=== PATIENT | female | born 1955 | race Caucasian/White ===

== ENCOUNTER 2022-12-29 14:24 | Outpatient (CLI) | payer MEDICARE | END 2022-12-29 14:25 | disposition home or self-care (01) | LOC: CSHULT 14:24 | PROVIDERS: ATTEND Obstetrics & Gynecology | DX: N63.10 Unspecified lump in the right breast, unspecified quadrant (principal) | CPT/HCPCS: 76642; 77066; G0279 ==

== ENCOUNTER 2024-04-06 12:20 | Inpatient (IN) | payer MEDICARE ==
[2024-04-06] MEDS ORDERED: cefTRIAXone (ROCEPHIN) 1 GM VIAL ONE (12:57)
[2024-04-06] MEDS ORDERED: Acetaminophen 500 MG TAB ONE (12:57)
[2024-04-06 13:15] LABS: Bilirubin Neg (Negative); Blood, Urine 10 (Negative); Clarity Slightly Cloudy (Clear); Glucose, Urine (Dipstick) Normal (Negative); Ketone, Urine 15 mg/dL (Negative); Leukocyte 25 (Negative); Nitrite Negative (Negative); Protein, Urine (Dipstick) 30 mg/dl (Neg-Trace); Specific Gravity, Urine 1.015 (1.005-1.030); Urobilinogen Normal mg/dL (Less than 2)
[2024-04-06 13:18] LABS: #Basophils 0.04 10x3/uL (0.0-0.2); #Eosinphils 0.01 10x3/uL (0.0-0.5); #Monocytes 1.16 10x3/uL (0.0-1.1); %Basophils 0.6 % (0.0-2.0); %Eosinophils 0.2 % (0.0-6.0); %Lymphocytes 7.6 % (18.0-47.0); %Monocytes 18.1 % (0.0-10.0); %Neutrophils 71.8 % (40.0-75.0); Hematocrit 32.9 % (34.9-44.5); Hemoglobin 11.1 g/dL (12.0-15.5); Mean Corpuscular HGB CONC 33.7 g/dL (32.0-36.0); Mean Corpuscular Hemoglobin 27.9 pg (27.0-33.0); Mean Corpuscular Volume 82.7 fL (81.6-98.3); Mean Platelet Volume 13.1 fL (7.4-10.4); Platelet Count 97 10x3/uL (150-450); RBC Distribution Width 14.6 % (11.5-14.5); Red Blood Cell (RBC) Count 3.98 10x6/uL (3.90-5.03); White Blood Cell (WBC) Count 6.4 10x3/uL (3.5-10.5)
[2024-04-06 13:22] LABS: ALT (SGPT) 11 U/L (8-55); AST (SGOT) 14 U/L (5-34); Albumin 3.5 g/dL (3.4-4.8); Alkaline Phosphatase 78 U/L (40-110); Anion Gap 15 mmol/L (10-20); BUN (Urea Nitrogen) 8 mg/dL (9.8-20.1); Bilirubin, Total 0.4 mg/dL (0.2-1.2); Calc. Creatinine Clearance 0 mL/min (70-130); Calcium 8.6 mg/dL (7.8-10.44); Carbon Dioxide 21 mmol/L (23-31); Chloride 98 mmol/L (98-107); Estimated GFR 65; Globulin 2.7 g/dL (2.4-3.5); Glucose 188 mg/dL (80-115); Lipase 7 U/L (8-78); Potassium 3.4 mmol/L (3.5-5.1); Protein, Total 6.2 g/dL (5.8-8.1); Sodium 131 mmol/L (136-145)
[2024-04-06] MEDS ORDERED: Ondansetron PF 4 MG/2 ML Vial ONE ×2 (13:24→15:35)
[2024-04-06 13:26] LABS: Troponin I Less than 0.010 ng/mL (< 0.028)
[2024-04-06 13:34] LABS: RBC/HPF 0-3 HPF (0-3)
[2024-04-06 13:35] LABS: Bacteria/HPF 1+ HPF (None Seen); CAUTI Indications for Culture Fever or rigors; WBC/HPF 0-3 HPF (0-3)
[2024-04-06 13:36] LABS: Urine Culture Reflex No No
[2024-04-06] MEDS ORDERED: Morphine 4 MG/ML VIAL ONE (13:51)
[2024-04-06 15:17] LABS: Platelet Adequacy Comment Appears Decreased
[2024-04-06 15:28] LABS: Influenza A by NAA Not Detected (NotDetected); Influenza B by NAA Not Detected (NotDetected); SARS-CoV-2 NAA Rapid Test Not Detected (NotDetected)
[2024-04-06] MEDS ORDERED: Acetaminophen 325 MG TAB PO PRN (16:13)
[2024-04-06] MEDS ORDERED: Electrolyte Replacement Protocol FS PRN (16:30)
[2024-04-06 18:13] VITALS: BMI 24.7
[2024-04-06] MEDS: Promethazine HCl 25 MG in Sodium Chloride 0.9% 50 ML IVPB SCH (18:32)
[2024-04-06] MEDS: Fioricet 325/50/40 mg Tablet PO SCH (18:38)
[2024-04-06] MEDS ORDERED: HumaLOG 300 UNITS/3 ML VIAL SC PRN (18:42)
[2024-04-06] MEDS ORDERED: Glucagon 1 MG/ML KIT IM PRN (18:42)
[2024-04-06] MEDS ORDERED: Dextrose 50% Abboject 50 ML SYRINGE SLOW IVP PRN (18:42)
[2024-04-06] MEDS ORDERED: Dextrose 5% in Water 1,000 ML IV PRN (18:42)
[2024-04-06] MEDS ORDERED: hydrALAZINE 20 MG/ML VIAL SLOW IVP PRN (18:48)
[2024-04-06] MEDS: Sodium Chloride 0.9% 1,000 ML IV SCH (19:29)
[2024-04-06] MEDS: Potassium Chloride 20 MEQ in Premix 1 BAG IVPB SCH (19:34)
[2024-04-06] MEDS: Electrolyte Replacement Protocol 1 EACH FS ONE (19:47)
[2024-04-06] MEDS: HYDROcodone/Acetaminophen 5/325 mg Tablet PO PRN (19:47)
[2024-04-06] MEDS: Ondansetron ODT 4 MG TAB PO PRN (19:47)
[2024-04-06] MEDS: metroNIDAZOLE 500 MG in Premix 1 BAG IVPB SCH (21:27)
[2024-04-06] MEDS: Ciprofloxacin Lactate/D5W 400 MG in Premix 1 BAG IVPB SCH (21:27)
[2024-04-06] MEDS: Metoclopramide HCl 10 MG (2 mL) VIAL IVP SCH (22:09)
[2024-04-06] MEDS: Ketorolac Tromethamine 30 MG (1 mL) VIAL IVP SCH (22:09)
[2024-04-06] MEDS: diphenhydrAMINE 50 MG/ML VIAL IVP SCH (22:09)
[2024-04-07 03:45] LABS: MDiff Complete? YES
[2024-04-07 03:49] LABS: Anion Gap 13 mmol/L (10-20); BUN (Urea Nitrogen) 5 mg/dL (9.8-20.1); Calc. Creatinine Clearance 79 mL/min (70-130); Carbon Dioxide 19 mmol/L (23-31); Chloride 106 mmol/L (98-107); Estimated GFR 85; Glucose 97 mg/dL (80-115); Magnesium 1.2 mg/dL (1.6-2.6); Potassium 3.5 mmol/L (3.5-5.1); Sodium 134 mmol/L (136-145)
[2024-04-07 03:53] LABS: Hematocrit 27.3 % (34.9-44.5); Hemoglobin 9.2 g/dL (12.0-15.5); Mean Corpuscular HGB CONC 33.7 g/dL (32.0-36.0); Mean Corpuscular Hemoglobin 28.1 pg (27.0-33.0); Mean Corpuscular Volume 83.5 fL (81.6-98.3); Mean Platelet Volume 13.2 fL (7.4-10.4); Platelet Count 66 10x3/uL (150-450); RBC Distribution Width 14.8 % (11.5-14.5); Red Blood Cell (RBC) Count 3.27 10x6/uL (3.90-5.03)
[2024-04-07 04:47] LABS: Band 8 % (5-11); Eosinophils 1 % (0-10); Lymphocytes 25 % (21-51); Monocytes 16 % (0-10); Neutrophil 50 % (42-75)
[2024-04-07 04:49] LABS: Anisocytosis SLIGHT = 6-15 cells (100X) (0-5/hpf); Hypochromia SLIGHT = 6-15 cells (100X) (0-5/hpf); Macrocytosis SLIGHT = 6-15 cells (100X) (0-5/hpf); Microcytosis SLIGHT = 6-15 cells (100X) (0-5/hpf)
[2024-04-07 04:50] LABS: Platelet Adequacy Comment Appears Decreased
[2024-04-07] MEDS ORDERED: Promethazine 25 MG TAB PO PRN (07:46)
[2024-04-07] MEDS: Potassium Chloride 20 MEQ TAB PO SCH (08:21)
[2024-04-07] MEDS: Aspirin 81 mg Enteric Coated Tablet PO SCH (08:22)
[2024-04-07] MEDS: Amlodipine 5 MG TAB PO SCH (08:22)
[2024-04-07] MEDS: Pantoprazole DR 40 MG TAB PO SCH (08:22)
[2024-04-07] MEDS: Enoxaparin 30 MG (0.3 mL) SYRINGE SC SCH (08:22)
[2024-04-07] MEDS: Lisinopril 5 MG TAB PO SCH (08:22)
[2024-04-07] MEDS: Magnesium 2 GM/50 ML(in water) 2 GM in Premix 1 BAG IVPB SCH (08:23)
[2024-04-07] MEDS: Loperamide HCl 2 MG CAP PO PRN (10:51)
[2024-04-07] MEDS: Venlafaxine HCl XR 75 MG CAP PO SCH (12:23)
[2024-04-07] MEDS: Ketorolac Tromethamine 30 MG (1 mL) VIAL IVP SCH (17:43)
[2024-04-07] MEDS: metFORMIN 500 MG TAB PO SCH (17:46)
[2024-04-07] MEDS: Morphine 2 MG/ML VIAL SLOW IVP PRN (22:39)
[2024-04-08 06:10] LABS: #Basophils 0.03 10x3/uL (0.0-0.2); #Eosinphils 0.04 10x3/uL (0.0-0.5); #Monocytes 0.49 10x3/uL (0.0-1.1); #Neutrophils 1.83 10x3/uL (1.5-8.4); %Basophils 0.9 % (0.0-2.0); %Eosinophils 1.3 % (0.0-6.0); %Lymphocytes 23.6 % (18.0-47.0); %Monocytes 15.4 % (0.0-10.0); %Neutrophils 57.5 % (40.0-75.0); Anion Gap 12 mmol/L (10-20); BUN (Urea Nitrogen) Less than 4 mg/dL (9.8-20.1); Calc. Creatinine Clearance 83 mL/min (70-130); Calcium 8.1 mg/dL (7.8-10.44); Carbon Dioxide 20 mmol/L (23-31); Chloride 109 mmol/L (98-107); Estimated GFR 90; Glucose 131 mg/dL (80-115); Hemoglobin 8.6 g/dL (12.0-15.5); Magnesium 1.5 mg/dL (1.6-2.6); Mean Corpuscular HGB CONC 33.1 g/dL (32.0-36.0); Mean Corpuscular Hemoglobin 27.4 pg (27.0-33.0); Mean Corpuscular Volume 82.8 fL (81.6-98.3); Mean Platelet Volume 13.2 fL (7.4-10.4); Platelet Count 79 10x3/uL (150-450); Potassium 4.2 mmol/L (3.5-5.1); RBC Distribution Width 15.1 % (11.5-14.5); Red Blood Cell (RBC) Count 3.14 10x6/uL (3.90-5.03); Sodium 137 mmol/L (136-145); White Blood Cell (WBC) Count 3.2 10x3/uL (3.5-10.5)
[2024-04-08] MEDS: metFORMIN 500 MG TAB PO SCH (08:14)
[2024-04-08] MEDS: Magnesium 2 GM/50 ML(in water) 2 GM in Premix 1 BAG IVPB SCH (09:33)
[2024-04-08] MEDS: diphenhydrAMINE 50 MG/ML VIAL IVP SCH (12:10)
[2024-04-08] MEDS: Ketorolac Tromethamine 30 MG (1 mL) VIAL IVP SCH (12:10)
[2024-04-08 13:32] LABS: Hemoglobin A1c 6.4 % (4.0-6.0)
[2024-04-08 13:52] VITALS: BP 127/62; TEMP 98
[2024-04-10 18:36] LABS: Adenovirus F 40-41 Not Detected (Not Detected); Astrovirus Not Detected (Not Detected); C. difficile toxin A+B DETECTED (Not Detected); Campylobacter by PCR DETECTED (Not Detected); Cryptosporidium Not Detected (Not Detected); Cyclospora cayetanensis Not Detected (Not Detected); Entamoeba histolytica Not Detected (Not Detected); Enteroaggregative E. coli Not Detected (Not Detected); Enteropathogenic E. coli Not Detected (Not Detected); Enterotoxigenic E. coli Not Detected (Not Detected); Giardia lamblia Not Detected (Not Detected); Norovirus GI-GII Not Detected (Not Detected); Plesiomonas shigelloides Not Detected (Not Detected); Rotavirus A Not Detected (Not Detected); Salmonella Not Detected (Not Detected); Sapovirus Not Detected (Not Detected); Shiga-toxin-producing E coli Not Detected (Not Detected); Shigella/Enteroinvasive E coli Not Detected (Not Detected); Vibrio Not Detected (Not Detected); Vibrio cholerae Not Detected (Not Detected); Yersinia enterocolitica Not Detected (Not Detected)
== END 2024-04-08 16:48 | disposition home or self-care (01) | DRG 872 ==
LOC: CSHERS 12:20 → CSHTELE 16:16 → OBSVTOIN 04-07 08:44
PROVIDERS: ADMIT Internal Medicine; ATTEND Family Medicine
DX: A41.9 Sepsis, unspecified organism (principal); E87.1 Hypo-osmolality and hyponatremia; E11.9 Type 2 diabetes mellitus without complications; I10 Essential (primary) hypertension; K52.9 Noninfective gastroenteritis and colitis, unspecified; G43.909 Migraine, unspecified, not intractable, without status migrainosus; F90.9 Attention-deficit hyperactivity disorder, unspecified type; E87.6 Hypokalemia; J42 Unspecified chronic bronchitis; J45.909 Unspecified asthma, uncomplicated; Z79.899 Other long term (current) drug therapy; Z88.2 Allergy status to sulfonamides; Z88.1 Allergy status to other antibiotic agents; Z88.8 Allergy status to other drugs, medicaments and biological substances; Z79.82 Long term (current) use of aspirin; Z98.890 Other specified postprocedural states; Z90.710 Acquired absence of both cervix and uterus; Z87.891 Personal history of nicotine dependence
CPT/HCPCS: 36415; 36416; 70450; 71045; 74176; 80048; 80053; 81001; 83036; 83605; 83690; 83735; 83880; 84484; 85025; 87040; 87086; 87324; 87449; 87507; 93005; 96374; 96375; 96376; J0696; J0744; J1200; J1650; J1885; J2270; J2272; J2405; J2550; J2765; J3475; J3480; J7050; Q0162